=== PATIENT | female | born 1980 | race Caucasian/White ===

== ENCOUNTER 2016-11-30 12:37 | Emergency (ER) | payer SELFPAY ==
[~2016-11-30] VITALS: Ht 172.7 cm; Wt 138.1 kg
[2016-11-30 12:44] VITALS: BP 148/97
[2016-11-30] MEDS ORDERED: ASPIRIN 81 MG TABLET CHEW PO ONE (14:00)
[2016-11-30 14:18] LABS: ASPARTATE AMINO TRANSFERASE 18 U/L (15-37); BLOOD UREA NITROGEN 12 mg/dL (7-18)
[2016-11-30 14:24] LABS: IS PT STATUS REG ER OR PRE ER? YES
[2016-11-30] MEDS ORDERED: ASPIRIN 81 MG TABLET CHEW ONE (14:31)
== END 2016-11-30 15:20 | disposition left against medical advice (07) ==
LOC: ED 14:30
DX: R07.89 Other chest pain (principal); F17.210 Nicotine dependence, cigarettes, uncomplicated
CPT/HCPCS: 36415; 71020; 80053; 83880; 84484; 84703; 85025; 93005